=== PATIENT | male | born 1975 | race Caucasian/White ===

== ENCOUNTER 2019-01-18 16:15 | Observation (INO) ==
[2019-01-18] MEDS ORDERED: CLINDAMYCIN INJ 900 MG in PREMIX 1 EACH IV STA (16:54)
[2019-01-18 17:26] LABS: Basophils # 0.1 10*3/uL (0.0-0.2); Basophils % 0.5 % (0.0-0.8); Eosinophils # 0.2 10*3/uL (0.0-0.87); Eosinophils % 2.5 % (0.00-10.9); Hematocrit 36.3 VOL% (42.0-52.0); Hemoglobin 12.2 GM/DL (14.0-18.0); Immature Granulocytes % 0.4 %; Immature Granulocytes Absolute 0.04 #; Lymphocytes # 1.8 10*3/uL (1.4-4.0); Lymphocytes % 19.3 % (21.2-54.2); Mean Corpuscular HGB Conc 33.6 GM/DL (32-36); Mean Corpuscular Volume 91.4 FL (87-102); Monocytes % 12.5 % (1.7-12.7); Neutrophils % 64.8 % (38.7-73.9); Platelet Count 192 T/CUMM (130-400); Red Blood Count 3.97 MC/CUMM (3.8-5.5); Red Cell Distribution Width 12.3 % (9.3-17.3); White Blood Count 9.5 T/CUMM (4-12)
[2019-01-18 17:34] LABS: INR 0.9; PT Patient Result 10.3 SECS; Partial Thromboplastin Time 28.8 SECS (0-40)
[2019-01-18 17:48] LABS: Albumin 3.3 G/DL (3.4-5.0); Bilirubin,Total 0.4 MG/DL (0.2-1.0); Calcium 8.8 MG/DL (8.5-10.1); Osmolality,Calculated 276.7 MOS/KG (273-304)
[2019-01-18] MEDS ORDERED: ONDANSETRON 4 MG/2 ML VIAL IV PRN (18:43)
[2019-01-18] MEDS: fentaNYL 100 MCG/2 ML VIAL IV PRN ×2 (20:41→23:02)
[2019-01-18] MEDS: CITALOPRAM 20 MG TABLET PO SCH (20:41)
[2019-01-19] MEDS: fentaNYL 100 MCG/2 ML VIAL IV PRN ×3 (01:07→05:51)
[2019-01-19] MEDS: CLINDAMYCIN INJ 900 MG in PREMIX 1 EACH IV SCH ×3 (01:13→18:41)
[2019-01-19] MEDS ORDERED: ONDANSETRON 4 MG/2 ML VIAL IV PRN (08:06)
[2019-01-19] MEDS ORDERED: MEPERIDINE 25 MG/1 ML VIAL IV PRN (08:06)
[2019-01-19] MEDS ORDERED: PROMETHAZINE INJ 25 MG in SODIUM CHLORIDE 0.9% 50 ML IV PRN (08:06)
[2019-01-19] MEDS ORDERED: HYDROmorphone 2 MG/1 ML VIAL IV PRN (08:06)
[2019-01-19] MEDS ORDERED: ONDANSETRON 4 MG/2 ML VIAL ONE (08:08)
[2019-01-19] MEDS ORDERED: HYDROmorphone 2 MG/1 ML VIAL ONE (08:08)
[2019-01-19] MEDS ORDERED: HYDROmorphone 2 MG/1 ML VIAL IV ONE (08:15)
[2019-01-19] MEDS ORDERED: ONDANSETRON 4 MG/2 ML VIAL IV ONE (08:15)
[2019-01-19] MEDS ORDERED: SEVOFLURANE 1 UNIT/15 MINUTE INH ONE (09:41)
[2019-01-19] MEDS ORDERED: fentaNYL 100 MCG/2 ML VIAL ONE (09:41)
[2019-01-19] MEDS ORDERED: PROPOFOL 200 MG/20 ML VIAL IV ONE (09:41)
[2019-01-19] MEDS ORDERED: MIDAZOLAM 2 MG/2 ML VIAL ONE (09:41)
[2019-01-19] MEDS ORDERED: LACTATED RINGERS 1,000 ML IV ONE (09:41)
[2019-01-19] MEDS: GABAPENTIN 600 MG TABLET PO SCH ×3 (11:30→21:20)
[2019-01-19] MEDS: HYDROmorphone 2 MG/1 ML VIAL IV PRN ×4 (11:31→21:30)
[2019-01-19] MEDS: CITALOPRAM 20 MG TABLET PO SCH (21:20)
[2019-01-20] MEDS: HYDROmorphone 2 MG/1 ML VIAL IV PRN ×7 (00:32→22:49)
[2019-01-20] MEDS: CLINDAMYCIN INJ 900 MG in PREMIX 1 EACH IV SCH ×3 (02:26→17:27)
[2019-01-20] MEDS: GABAPENTIN 600 MG TABLET PO SCH ×3 (10:26→21:21)
[2019-01-20] MEDS: CITALOPRAM 20 MG TABLET PO SCH (21:21)
[2019-01-21] MEDS: HYDROmorphone 2 MG/1 ML VIAL IV PRN ×2 (02:21→07:22)
[2019-01-21] MEDS: CLINDAMYCIN INJ 900 MG in PREMIX 1 EACH IV SCH ×2 (02:22→10:57)
[2019-01-21] MEDS: GABAPENTIN 600 MG TABLET PO SCH (09:35)
[2019-01-21 11:02] VITALS: BP 108/62
== END 2019-01-21 13:35 | disposition home or self-care (01) ==
LOC: N.ED 16:15 → N.EDINP 16:15 → N.3E 18:49
PROVIDERS: ADMIT Surgery; ATTEND Surgery